=== PATIENT | female | born 1975 | race Two or more races ===

== ENCOUNTER 2017-06-25 08:33 | Outpatient (CLI) | payer OTHER ==
[~2017-06-25 08:33] MED LIST: FLONASE16 GM NS; ZANTAC300 MG PO
== END 2017-06-25 08:50 | disposition home or self-care (01) ==
LOC: SONOGRAMA 08:33
DX: E03.8 Other specified hypothyroidism (principal); R22.1 Localized swelling, mass and lump, neck

== ENCOUNTER 2019-06-06 12:51 | Outpatient (CLI) | payer OTHER | END 2019-06-06 13:04 | disposition home or self-care (01) | LOC: RAD 12:51 | DX: N60.01 Solitary cyst of right breast (principal); N60.02 Solitary cyst of left breast; E04.1 Nontoxic single thyroid nodule; R07.89 Other chest pain; Z12.31 Encounter for screening mammogram for malignant neoplasm of breast ==